=== PATIENT | female | born 1995 | race African-American/Black ===

== ENCOUNTER 2016-12-14 23:48 | Emergency (ER) | payer SELFPAY ==
[~2016-12-14] VITALS: Ht 165.1 cm; Wt 84.4 kg
[2016-12-15] MEDS ORDERED: LIDO:MAALOX:DONNATAL 1:1:1 15 ML SINGLE DOSE SWSW ONE (01:00)
--- NOTE | 2016-12-15 01:33 | PHYS DOC ---
Past Medical History Past Medical History: Other Additional Past Medical Histor: lupus and sickle cell Past Surgical History: Other Additional Past Surgical Histo: breasts reduction Alcohol Use: None Drug Use: None Adult General Chief Complaint Chief Complaint: CHEST PAIN HPI HPI This is a 21-year-old female who states she's had mild epigastric and substernal chest pain that does radiate somewhat into her back that she states occurred around 4 PM. She states she has mild shortness of breath area. She does state she has had some nausea and vomiting as well. She does state she has history of Lupus and sickle trait. She is in no acute distress and rates her pain a 10 out of 10. Review of Systems Review of Systems Constitutional: Denies fever or chills [] Eyes: Denies change in visual acuity, redness, or eye pain [] HENT: Denies nasal congestion or sore throat [] Respiratory: Denies cough or shortness of breath [] Cardiovascular: No additional information not addressed in HPI [] GI: Denies abdominal pain, nausea, vomiting, bloody stools or diarrhea [] : Denies dysuria or hematuria [] Musculoskeletal: Denies back pain or joint pain [] Integument: Denies rash or skin lesions [] Neurologic: Denies headache, focal weakness or sensory changes [] Endocrine: Denies polyuria or polydipsia [] Current Medications Current Medications Current Medications Medications (Trade) Dose Ordered Sig/Franny Start Time Stop Time Status Last Admin Dose Admin Fentanyl Citrate (Fentanyl 2ml Vial) 50 mcg 1X ONCE 12/15/16 02:00 12/15/16 02:01 DC 12/15/16 01:57 50 MCG Multi-Ingredient Mouthwash/Gargle (Gi Cocktail Single Dose) 15 ml 1X ONCE 12/15/16 01:00 12/15/16 01:01 DC 12/15/16 00:50 15 ML Pantoprazole Sodium (Protonix Vial) 40 mg 1X ONCE 12/15/16 02:00 12/15/16 02:01 DC 12/15/16 01:57 40 MG Allergies Allergies Allergies Coded Allergies Type Severity Reaction Last Updated Verified oxycodone Adverse Reaction Intermediate VOMITING 11/08/14 No Physical Exam Physical Exam Constitutional: Well developed, well nourished, no acute distress, non-toxic appearance. [] HENT: Normocephalic, atraumatic, bilateral external ears normal, oropharynx moist, no oral exudates, nose normal. [] Eyes: PERRLA, EOMI, conjunctiva normal, no discharge. [] Neck: Normal range of motion, no tenderness, supple, no stridor. [] Cardiovascular:Heart rate regular rhythm, no murmur [] Lungs & Thorax: Bilateral breath sounds clear to auscultation [] Abdomen: Bowel sounds normal, soft, no tenderness, no masses, no pulsatile masses. [] Skin: Warm, dry, no erythema, no rash. [] Back: No tenderness, no CVA tenderness. [] Extremities: No tenderness, no cyanosis, no clubbing, ROM intact, no edema. [] Neurologic: Alert and oriented X 3, normal motor function, normal sensory function, no focal deficits noted. [] Psychologic: Affect normal, judgement normal, mood normal. [] Current Patient Data Vital Signs Vital Signs Date Time Temp Pulse Resp B/P Pulse Ox O2 Delivery O2 Flow Rate FiO2 12/15/16 01:57 16 Room Air 12/15/16 01:18 54 131/84 99 12/15/16 00:02 97.3 97.3 Lab Values Laboratory Tests Test 12/15/16 00:04 12/15/16 00:26 White Blood Count 10.7x10^3/uL (4.0-11.0) Red Blood Count 4.52x10^6/uL (3.50-5.40) Hemoglobin 10.8g/dL (12.0-15.5) L Hematocrit 34.4% (36.0-47.0) L Mean Corpuscular Volume 76fL (79-100) L Mean Corpuscular Hemoglobin 24pg (25-35) L Mean Corpuscular Hemoglobin Concent 31g/dL (31-37) Red Cell Distribution Width 19.1% (11.5-14.5) H Platelet Count 377x10^3/uL (140-400) Neutrophils (%) (Auto) 65% (31-73) Lymphocytes (%) (Auto) 27% (24-48) Monocytes (%) (Auto) 5% (0-9) Eosinophils (%) (Auto) 2% (0-3) Basophils (%) (Auto) 1% (0-3) Neutrophils # (Auto) 6.9x10^3uL (1.8-7.7) Lymphocytes # (Auto) 2.9x10^3/uL (1.0-4.8) Monocytes # (Auto) 0.6x10^3/uL (0.0-1.1) Eosinophils # (Auto) 0.3x10^3/uL (0.0-0.7) Basophils # (Auto) 0.1x10^3/uL (0.0-0.2) D-Dimer (Mili) < 0.27ug/mlFEU (0.00-0.50) Sodium Level 140mmol/L (136-145) Potassium Level 3.8mmol/L (3.5-5.1) Chloride Level 104mmol/L (98-107) Carbon Dioxide Level 23mmol/L (21-32) Anion Gap 13 (6-14) Blood Urea Nitrogen 6mg/dL (7-20) L Creatinine 0.8mg/dL (0.6-1.0) Estimated GFR (Cockcroft-Gault) 107.6 BUN/Creatinine Ratio 8 (6-20) Glucose Level 97mg/dL (70-99) Calcium Level 9.6mg/dL (8.5-10.1) Total Bilirubin 0.4mg/dL (0.2-1.0) Aspartate Amino Transferase (AST) 15U/L (15-37) Alanine Aminotransferase (ALT) 32U/L (14-59) Alkaline Phosphatase 93U/L (46-116) Troponin I Quantitative < 0.017ng/mL (0.000-0.055) Total Protein 7.5g/dL (6.4-8.2) Albumin 3.8g/dL (3.4-5.0) Albumin/Globulin Ratio 1.0 (1.0-1.7) Lipase 146U/L (73-393) POC Urine HCG, Qualitative Hcg negative (Negative) Laboratory Tests 12/15/16 00:04 Laboratory Tests 12/15/16 00:04 EKG EKG EKG as interpreted by me shows a sinus rhythm with rate of 74 bpm. There are some T-wave inversion noted to lead 3 and aVF but no other obvious abnormalities are seen. Radiology/Procedures Radiology/Procedures One view of the chest does not reveal any acute cardiopulmonary abnormality CT of her abdomen/pelvis without contrast demonstrated the following: Limited images of lung bases are clear. Heart size within normal limits. No pleural or pericardial effusion. Solid abdominal viscera not well evaluated in the absence of contrast material. No apparent attenuation abnormality of the liver or spleen. Pancreas and adrenal glands are unremarkable. There are some layering calcific densities at the gallbladder fundus. Kidneys are symmetric in size and attenuation. No calcific stone or hydronephrosis. Under opacified GI tract normal in caliber and contour. No focal bowel wall thickening. No inflammatory stranding in the mesentery. The appendix is normal in caliber. No ascites or lymphadenopathy. Images of pelvis show nondistended urinary bladder. Uterus and adnexa are unremarkable. No free pelvic fluid or pelvic lymphadenopathy. Bone window show no acute findings. Course & Med Decision Making Course & Med Decision Making Pertinent Labs and Imaging studies reviewed. (See chart for details) This 21-year-old female is having some chest discomfort was given a GI cocktail with minimal to no relief. Her EKG and chest x-ray at this time do not reveal any acute abnormality. D-dimer is negative. I will continue to work her up for any heart related issue. On my reassessment, the patient appears still very uncomfortable despite protonix dose. She localizes her pain to the left upper quadrant and radiating into her back. I will add additional laboratory workup including a CBC, CMP, and lipase and add a CT of her abdomen and pelvis with specific concern to rule out any acute cause of her symptoms such as gastric perforation. CT of her abdomen and pelvis demonstrated no acute findings but did demonstrate cholelithiasis which could be the source of her pain. I'll be discharging her with a course of nausea and pain control with strict instruction to follow closely with her primary care doctor for her abdominal pain and gallstones. The rest of her laboratory work up is negative. Dragon Disclaimer Dragon Disclaimer This electronic medical record was generated, in whole or in part, using a voice recognition dictation system. Departure Departure Impression: Primary Impression: Epigastric abdominal pain Additional Impression: Cholelithiasis Disposition: 01 HOME, SELF-CARE Admitting Physician: Other Condition: STABLE Referrals: DANIELE HONG MD (PCP) SRIKANTH ADDISON MD Patient Instructions: Chest Wall Pain, [id number], Cholelithiasis, Easy-to- Read Additional Instructions: Please take your medication as prescribed and follow up closely with your primary doctor in the next 1-2 days. Return to the ER if you develop any worsening of your pain despite taking your medications. Scripts Ondansetron Hcl (Zofran)4 Mg Tablet4 Mg PO BID PRN NAUSEA/VOMITING #10 TAB Prov:SRIKANTH JESSICA DO 12/15/16 Hydrocodone/Apap 5-325 ([place] 5-325 Tablet)1 Each Tablet1 Tab PO PRN Q6HRS PRN PAIN #10 TAB Prov:SRIKANTH JESSICA DO 12/15/16 Famotidine (Pepcid)20 Mg [id number] Mg PO HS #10 TAB Prov:SRIKANTH JESSICA DO 12/15/16 Problem Qualifiers SRIKANTH JESSICA DO Dec 15, 2016 01:32
[2016-12-15] MEDS ORDERED: FAMO-63 PO (01:44)
[2016-12-15] MEDS ORDERED: PANTOPRAZOLE IV PUSH 40 MG VIAL. IVP ONE (02:00)
[2016-12-15] MEDS ORDERED: FENTANYL PF 100 MCG/2 ML VIAL. IV ONE (02:00)
[2016-12-15 02:02] LABS: BASO # 0.1 x10^3/uL (0.0-0.2); BASO % 1 % (0-3); EOS % 2 % (0-3); HEMATOCRIT 34.4 % (36.0-47.0); HEMOGLOBIN 10.8 g/dL (12.0-15.5); LYMPH # 2.9 x10^3/uL (1.0-4.8); LYMPH % 27 % (24-48); MEAN CORPUSCULAR HEMOGLOBIN 24 pg (25-35); MEAN CORPUSCULAR HGB CONC 31 g/dL (31-37); MEAN CORPUSCULAR VOLUME 76 fL (79-100); MONO % 5 % (0-9); NEUT % 65 % (31-73); PLATELET COUNT 377 x10^3/uL (140-400); RED BLOOD COUNT 4.52 x10^6/uL (3.50-5.40); RED CELL DISTRIBUTION WIDTH 19.1 % (11.5-14.5); WHITE BLOOD COUNT 10.7 x10^3/uL (4.0-11.0)
[2016-12-15 02:14] LABS: CALCIUM 9.6 mg/dL (8.5-10.1); CREATININE 0.8 mg/dL (0.6-1.0); GFR 107.6; POTASSIUM 3.8 mmol/L (3.5-5.1)
[2016-12-15 02:19] LABS: ALBUMIN 3.8 g/dL (3.4-5.0); TOTAL BILIRUBIN 0.4 mg/dL (0.2-1.0); TOTAL PROTEIN 7.5 g/dL (6.4-8.2)
[2016-12-15 02:36] VITALS: BP 97/61
--- NOTE | 2016-12-15 02:50 | RAD ---
PROCEDURE CT abdomen and pelvis without contrast dated 12/15/2016. HISTORY Abdominal pain. Rule out perforation. TECHNIQUE Contiguous axial imaging of the abdomen and pelvis performed without the administration of IV or oral contrast.Exposure: One or more of the following individualized dose reduction techniques were utilized for this exam: 1. Automated exposure control. 2. Adjustment of the mA and/or kV according to patient size. 3. Use of iterative reconstruction technique. COMPARISON 11/08/2014. FINDINGS Limited images of lung bases are clear. Heart size within normal limits. No pleural or pericardial effusion. Solid abdominal viscera not well evaluated in the absence of contrast material. No apparent attenuation abnormality of the liver or spleen. Pancreas and adrenal glands are unremarkable. There are some layering calcific densities at the gallbladder fundus. Kidneys are symmetric in size and attenuation. No calcific stone or hydronephrosis. Under opacified GI tract normal in caliber and contour. No focal bowel wall thickening. No inflammatory stranding in the mesentery. The appendix is normal in caliber. No ascites or lymphadenopathy. Images of pelvis show nondistended urinary bladder. Uterus and adnexa are unremarkable. No free pelvic fluid or pelvic lymphadenopathy. Bone window show no acute findings. IMPRESSION - No acute abnormality of abdomen or pelvis. No evidence of bowel perforation. - Normal appendix. - Cholelithiasis. Electronically signed by: Lon Bennett (Dec 15, 2016 02:49:14)
[2016-12-15] MEDS ORDERED: ONDA4TAB7 PO (02:58)
[2016-12-15] MEDS ORDERED: HYDR-971 PO (02:58)
--- NOTE | 2016-12-15 06:52 | EKG ---
[facility] [address] [place] [address] Test Date: 2016-12-14 Test Time: 23:55:06 Pat Name: NNAMDI MERCADO Department: Room: Gender: F Regional Marketing Manager: : 1995 Requested By: SRIKANTH JESSICA Order Number: [id number] Reading MD: Measurements Intervals [place] Rate: 74 P: 0 [place]: 182 QRS: 0 QRSD: 88 T: -12 QT: 360 QTc: 404 Interpretive Statements SINUS RHYTHM LEFTWARD AXIS INCOMPLETE RIGHT BUNDLE BRANCH BLOCK T ABNORMALITY IN INFERIOR LEADS RI6.01 Unconfirmed report No previous ECG available for comparison
--- NOTE | 2016-12-15 07:28 | RAD ---
EXAM: Chest one view. HISTORY: Chest pain. COMPARISON: 09/28/2010. FINDINGS: A frontal view of the chest is obtained. There are no confluent infiltrates. There is no pneumothorax or pleural effusion. The heart is not enlarged. IMPRESSION: 1. No confluent infiltrates.
== END 2016-12-15 03:03 | disposition home or self-care (01) ==
LOC: ER 23:48
DX: K80.20 Calculus of gallbladder without cholecystitis without obstruction (principal); Z88.5 Allergy status to narcotic agent
CPT/HCPCS: 36415; 71010; 74176; 80053; 81025; 83690; 84484; 85027; 85379; 93005; 96374; 96375; 99285; C9113; J3010; 99284-25

== ENCOUNTER 2016-12-20 23:42 | Emergency (ER) | payer OTHER ==
[~2016-12-20] VITALS: Ht 165.1 cm; Wt 90.7 kg
[~2016-12-20 23:42] MED LIST: FAMO-63 PO; HYDR-971 PO; ONDA4TAB7 PO
[2016-12-21] MEDS ORDERED: IV NORMAL SALINE 1000ML BAG 1,000 ML IV SCH (00:19)
[2016-12-21] MEDS ORDERED: FAMOTIDINE 20 MG/2 ML VIAL IVP ONE (00:30)
[2016-12-21] MEDS ORDERED: ONDANSETRON PF 4 MG/2 ML VIAL. IV ONE (00:30)
[2016-12-21 00:37] LABS: BASO # 0.1 x10^3/uL (0.0-0.2); BASO % 1 % (0-3); EOS % 1 % (0-3); HEMATOCRIT 34.5 % (36.0-47.0); LYMPH # 3.9 x10^3/uL (1.0-4.8); LYMPH % 33 % (24-48); MEAN CORPUSCULAR HEMOGLOBIN 24 pg (25-35); MEAN CORPUSCULAR HGB CONC 32 g/dL (31-37); MEAN CORPUSCULAR VOLUME 76 fL (79-100); MONO % 6 % (0-9); NEUT % 59 % (31-73); PLATELET COUNT 378 x10^3/uL (140-400); RED BLOOD COUNT 4.53 x10^6/uL (3.50-5.40); RED CELL DISTRIBUTION WIDTH 19.4 % (11.5-14.5); WHITE BLOOD COUNT 11.8 x10^3/uL (4.0-11.0)
[2016-12-21 00:51] LABS: BACTERIA,URINE MANY /HPF (0-FEW); BILIRUBIN,URINE NEGATIVE (NEG); GLUCOSE,URINE NEGATIVE (NEG); NITRITE,URINE NEGATIVE (NEG); PH,URINE 5.5; PROTEIN,URINE NEGATIVE (NEG-TRACE); RBC,URINE 0 /HPF (0-2); SQUAMOUS EPITHELIAL CELL,UR MANY /LPF; UROBILINOGEN,URINE 0.2 mg/dL (0.2 mg/dL)
[2016-12-21 00:53] LABS: CALCIUM 9.4 mg/dL (8.5-10.1); CREATININE 0.8 mg/dL (0.6-1.0); GFR 107.6; POTASSIUM 3.8 mmol/L (3.5-5.1)
[2016-12-21 00:56] LABS: ALBUMIN 3.8 g/dL (3.4-5.0); TOTAL BILIRUBIN 0.4 mg/dL (0.2-1.0); TOTAL PROTEIN 7.5 g/dL (6.4-8.2)
--- NOTE | 2016-12-21 01:12 | RAD ---
Ultrasound abdomen limited Indication: Right upper quadrant pain. The liver is unremarkable. No focal liver mass is detected. The gallbladder is mildly distended. There are small stones identified in the fundus. No gallbladder wall thickening or pericholecystic fluid is detected. No biliary ductal dilatation is seen. The pancreas was poorly visualized. The right kidney is unremarkable. IVC is unremarkable. There is no ascites. Impression: 1. Cholelithiasis without evidence of acute cholecystitis. Electronically signed by: Adolfo Cortez MD (Dec 21, 2016 01:11:14)
--- NOTE | 2016-12-21 02:05 | PHYS DOC ---
Past Medical History Past Medical History: Gallstones, Other Additional Past Medical Histor: lupus and sickle cell Past Surgical History: Other Additional Past Surgical Histo: breasts reduction Alcohol Use: Occasionally Drug Use: None Adult General Chief Complaint Chief Complaint: ABDOMINAL PAIN HPI HPI Patient is a 21 year old female who presents with abdominal pain and nausea/ vomiting. Patient was seen this past week in the emergency department and was diagnosed with cholelithiasis. She was given prescriptions for medications to control pain and nausea, however she has not been able to fill the prescriptions due to insufficient funds. She does have appointment to follow-up with the surgeon on 12/23. She presents tonight with worsening right upper quadrant pain and nausea/vomiting for the past couple hours. No clear inciting or aggravating factors. She has tried some Tylenol at home with insufficient relief. Review of Systems Review of Systems Constitutional: Denies fever or chills Eyes: Denies change in visual acuity or eye pain HENT: Denies nasal congestion or sore throat Respiratory: Denies cough or shortness of breath Cardiovascular: Denies chest pain GI: RUQ abdominal pain, nausea, vomiting. Denies bloody stools or diarrhea : Denies dysuria or hematuria Musculoskeletal: Denies back pain or joint pain Integument: Denies rash or skin lesions Neurologic: Denies headache, focal weakness or sensory changes Current Medications Current Medications Current Medications Medications (Trade) Dose Ordered Sig/Franny Start Time Stop Time Status Last Admin Dose Admin Acetaminophen/ Hydrocodone Bitart (Lortab 5/325) 1 tab 1X ONCE 12/21/16 02:15 12/21/16 02:16 DC 12/21/16 02:17 1 TAB Famotidine (Pepcid) 20 mg 1X ONCE 12/21/16 00:30 12/21/16 00:42 DC 12/21/16 00:40 20 MG Ondansetron HCl (Zofran) 4 mg 1X ONCE 12/21/16 00:30 12/21/16 00:42 DC 12/21/16 00:41 4 MG Sodium Chloride (Iv Sodium Chloride 0.9% 1000ml Bag) 1,000 ml @ 1,000 mls/hr Q1H 12/21/16 00:19 12/21/16 01:18 DC 12/21/16 00:41 1,000 MLS/HR Allergies Allergies Allergies Coded Allergies Type Severity Reaction Last Updated Verified oxycodone Adverse Reaction Intermediate VOMITING 11/08/14 No Physical Exam Physical Exam Constitutional: Well developed, well nourished, no acute distress, non-toxic appearance HENT: Normocephalic, atraumatic, bilateral external ears normal Eyes: EOMI, conjunctiva normal, no discharge Neck: Normal range of motion, no stridor Cardiovascular: Bradycardic, regular rhythm, no murmur Lungs & Thorax: Bilateral breath sounds clear to auscultation Abdomen: Bowel sounds normal, soft, non-distended, RUQ/epigastric TTP without guarding or rebound Skin: Warm, dry, no erythema, no rash Extremities: No obvious deformity, no edema Neurologic: Somnolent but arousable, oriented X 3, no gross deficits noted Current Patient Data Vital Signs Vital Signs Date Time Temp Pulse Resp B/P Pulse Ox O2 Delivery O2 Flow Rate FiO2 12/21/16 02:51 74 108/69 98 Room Air 12/21/16 02:17 16 12/20/16 23:53 97.6 97.6 Lab Values Laboratory Tests Test 12/21/16 00:04 12/21/16 00:07 Urine Collection Type Unknown Urine Color Yellow Urine Clarity Cloudy Urine pH 5.5 Urine Specific [place] 1.020 Urine Protein Negativemg/dL (NEG-TRACE) Urine Glucose (UA) Negativemg/dL (NEG) Urine Ketones (Stick) Negativemg/dL (NEG) Urine Blood Negative (NEG) Urine Nitrite Negative (NEG) Urine Bilirubin Negative (NEG) Urine Urobilinogen Dipstick 0.2mg/dL (0.2 mg/dL) Urine Leukocyte Esterase Small (NEG) Urine RBC 0/HPF (0-2) Urine WBC 5-10/HPF (0-4) Urine Squamous Epithelial Cells Many/LPF Urine Bacteria Many/HPF (0-FEW) Urine Mucus Marked/LPF Urine Opiates Screen Neg (NEG) Urine Methadone Screen Neg (NEG) Urine Barbiturates Neg (NEG) Urine Phencyclidine Screen Neg (NEG) Urine Amphetamine/Methamphetamine Neg (NEG) Urine Benzodiazepines Screen Neg (NEG) Urine Cocaine Screen Neg (NEG) Urine Cannabinoids Screen Neg (NEG) Urine Ethyl Alcohol Neg (NEG) White Blood Count 11.8x10^3/uL (4.0-11.0) H Red Blood Count 4.53x10^6/uL (3.50-5.40) Hemoglobin 11.0g/dL (12.0-15.5) L Hematocrit 34.5% (36.0-47.0) L Mean Corpuscular Volume 76fL (79-100) L Mean Corpuscular Hemoglobin 24pg (25-35) L Mean Corpuscular Hemoglobin Concent 32g/dL (31-37) Red Cell Distribution Width 19.4% (11.5-14.5) H Platelet Count 378x10^3/uL (140-400) Neutrophils (%) (Auto) 59% (31-73) Lymphocytes (%) (Auto) 33% (24-48) Monocytes (%) (Auto) 6% (0-9) Eosinophils (%) (Auto) 1% (0-3) Basophils (%) (Auto) 1% (0-3) Neutrophils # (Auto) 7.0x10^3uL (1.8-7.7) Lymphocytes # (Auto) 3.9x10^3/uL (1.0-4.8) Monocytes # (Auto) 0.7x10^3/uL (0.0-1.1) Eosinophils # (Auto) 0.1x10^3/uL (0.0-0.7) Basophils # (Auto) 0.1x10^3/uL (0.0-0.2) Sodium Level 142mmol/L (136-145) Potassium Level 3.8mmol/L (3.5-5.1) Chloride Level 105mmol/L (98-107) Carbon Dioxide Level 25mmol/L (21-32) Anion Gap 12 (6-14) Blood Urea Nitrogen 10mg/dL (7-20) Creatinine 0.8mg/dL (0.6-1.0) Estimated GFR (Cockcroft-Gault) 107.6 BUN/Creatinine Ratio 13 (6-20) Glucose Level 131mg/dL (70-99) H Calcium Level 9.4mg/dL (8.5-10.1) Total Bilirubin 0.4mg/dL (0.2-1.0) Aspartate Amino Transferase (AST) 48U/L (15-37) H Alanine Aminotransferase (ALT) 42U/L (14-59) Alkaline Phosphatase 100U/L (46-116) Total Protein 7.5g/dL (6.4-8.2) Albumin 3.8g/dL (3.4-5.0) Albumin/Globulin Ratio 1.0 (1.0-1.7) Lipase 127U/L (73-393) Ethyl Alcohol Level < 10mg/dL (0-10) Laboratory Tests 12/21/16 00:07 Laboratory Tests 12/21/16 00:07 EKG EKG [] Radiology/Procedures Radiology/Procedures RUQ US: Impression: 1. Cholelithiasis without evidence of acute cholecystitis. Course & Med Decision Making Course & Med Decision Making Pertinent Labs and Imaging studies reviewed. (See chart for details) Patient is 21-year-old female who presents with right upper quadrant pain and nausea/vomiting. Has known cholelithiasis. Will check labs, right upper quadrant ultrasound to rule out cholecystitis. IV fluids, nausea medicine ordered for relief of symptoms. Will hold on narcotic pain medication at this time due to patient's somnolence. Labs notable for mild leukocytosis. AST minimally elevated. Imaging results as above. Discussed results with patient. Patient says she is feeling better at this time. As she is more awake, I will give oral pain medication at this time for further control of pain. I discussed discharge home with patient filling her prescriptions to manage her symptoms as an outpatient with subsequent follow up with surgeon at already scheduled appointment versus admission for inpatient management of symptoms. Patient desires to go home. Will discharge with instructions for follow-up and return precautions. Dragon Disclaimer Dragon Disclaimer This electronic medical record was generated, in whole or in part, using a voice recognition dictation system. Departure Departure Impression: Primary Impression: Cholelithiasis Disposition: 01 HOME, SELF-CARE Condition: IMPROVED Referrals: DANIELE HONG MD (PCP) Patient Instructions: Cholelithiasis Additional Instructions: Thank you for allowing us to provide care today in the Emergency Department. Fill the prescriptions that you were given last time you were seen in the Emergency Department. Schedule a follow up appointment with your primary care doctor. Keep your scheduled appointment with the general surgeon. Return promptly to the Emergency Department if you develop any new or concerning symptoms, such as fever. MAKSIM ZHANG MD Dec 21, 2016 02:05
[2016-12-21] MEDS ORDERED: HYDROCODONE/APAP 5/325MG TABLET. PO ONE (02:15)
[2016-12-21 02:18] LABS: BARBITURATES NEG (NEG); BENZODIAZEPINES NEG (NEG); CANNABINOIDS NEG (NEG); COCAINE NEG (NEG); ETHANOL, URINE NEG (NEG); METHADONE NEG (NEG); OPIATES NEG (NEG); PHENCYCLIDINE NEG (NEG)
[2016-12-21 02:51] VITALS: BP 108/69
--- NOTE | 2016-12-24 16:21 | VNOTE ---
CALL BACK NOTE CALL BACK Microbiology 12/21/16 Urine Culture - Final, Complete 12/21/16 Urine Culture Result 1 (TIFFANIE) - Final, Complete 12/21/16 Antimicrobic Susceptibility - Final, Complete Urine culture was positive for greater than 100,000 Escherichia coli. Called the patient, spoke to her, she states she is at [facility] they just took her gallbladder and gallstones. She states she is admitted there. Informed her, her urine has infection and she needs to let her doctor at know. KIARA BETANCOURT APRN Dec 24, 2016 16:21
== END 2016-12-21 02:55 | disposition home or self-care (01) ==
LOC: ER 23:42
DX: K80.20 Calculus of gallbladder without cholecystitis without obstruction (principal); M32.9 Systemic lupus erythematosus, unspecified; D72.829 Elevated white blood cell count, unspecified; Z86.2 Personal history of diseases of the blood and blood-forming organs and certain disorders involving the immune mechanism
CPT/HCPCS: 36415; 76705; 80053; 81001; 81025; 83690; 85027; 87086; 96361; 96374; 99285; G0480; G0481; J2405; J7030; S0028

== ENCOUNTER 2019-09-29 10:06 | Emergency (ER) | payer SELFPAY ==
[~2019-09-29] VITALS: Ht 165.1 cm; Wt 93.0 kg
[~2019-09-29 10:06] MED LIST changes: +HYDR-3164 PO; -HYDR-971 PO
[2019-09-29 10:30] VITALS: BP 111/75
[2019-09-29 11:32] LABS: BILIRUBIN,URINE NEGATIVE (NEG); CLARITY,URINE CLEAR; COLOR,URINE YELLOW; NITRITE,URINE POSITIVE (NEG); PROTEIN,URINE NEGATIVE (NEG-TRACE)
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
[2019-09-29] MEDS ORDERED: IBUPROFEN 400 MG TABLET. PO ONE (11:45)
[2019-09-29 11:54] LABS: SQUAMOUS EPITHELIAL CELL,UR FEW /LPF
[2019-09-29 11:55] LABS: BACTERIA,URINE MANY /HPF (0-FEW)
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
[2019-09-29] MEDS ORDERED: IBUP-1007 PO (12:36)
[2019-09-29] MEDS ORDERED: CEPH-264 PO (12:37)
== END 2019-09-29 12:54 | disposition home or self-care (01) ==
LOC: ER 10:06
DX: R07.81 Pleurodynia (principal); N39.0 Urinary tract infection, site not specified; Z98.890 Other specified postprocedural states; Z87.442 Personal history of urinary calculi; Z79.899 Other long term (current) drug therapy; Y04.2XXA Assault by strike against or bumped into by another person, initial encounter; Y93.89 Activity, other specified; Y92.89 Other specified places as the place of occurrence of the external cause; Y99.8 Other external cause status
CPT/HCPCS: 71101; 81001; 81025; 87086; 87186; 99285

== ENCOUNTER 2021-07-09 20:54 | Emergency (ER) | payer SELFPAY ==
[~2021-07-09] VITALS: Ht 165.1 cm; Wt 106.7 kg
[~2021-07-09 20:54] MED LIST changes: +CEPH-264 PO; +IBUP-1007 PO
[2021-07-09] MEDS ORDERED: IOHEXOL 300 MG/ML 100ML VIAL. IV ONE (21:30)
[2021-07-09] MEDS ORDERED: CONTRAST GIVEN. MC PRN (21:45)
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
[2021-07-09 22:49] VITALS: BP 125/74
== END 2021-07-09 22:58 | disposition home or self-care (01) ==
LOC: ER 20:54
DX: S00.01XA Abrasion of scalp, initial encounter (principal); S70.312A Abrasion, left thigh, initial encounter; M54.6 Pain in thoracic spine; M54.5 Low back pain; Z88.5 Allergy status to narcotic agent; F17.200 Nicotine dependence, unspecified, uncomplicated; W13.0XXA Fall from, out of or through balcony, initial encounter; Y93.89 Activity, other specified; Y92.89 Other specified places as the place of occurrence of the external cause; Y99.8 Other external cause status
CPT/HCPCS: 70450; 71260; 72125; 74177; 99285; Q9967

== ENCOUNTER 2021-09-02 17:06 | Emergency (ER) | payer SELFPAY ==
[~2021-09-02] VITALS: Ht 165.1 cm; Wt 100.0 kg
[2021-09-02] MEDS ORDERED: IV NORMAL SALINE 1000ML BAG 1,000 ML IV SCH (18:00)
--- NOTE | 2021-09-02 18:04 | PHYS DOC ---
Past Medical History Past Medical History: Gallstones, Other Additional Past Medical Histor: lupus and sickle cell Past Surgical History: Cholecystectomy, Other Additional Past Surgical Histo: breasts reduction, PARTIAL HYSTERECTOMY, ECTOPIC Smoking Status: Former Smoker Alcohol Use: Occasionally Drug Use: None General Adult EDM: Chief Complaint: FLANK PAIN HPI: HPI: Patient is a 26 year old [f__sex] who presents with [] Review of Systems: Review of Systems: Constitutional: +fever or +chills. [] Eyes: Denies change in visual acuity. [] HENT: Denies nasal congestion or sore throat. [] Respiratory: Denies cough or shortness of breath. [] Cardiovascular: Denies chest pain or edema. [] GI: Denies abdominal pain, nausea, vomiting, bloody stools or diarrhea. [] : Denies dysuria. +Pressure with urination. [] Musculoskeletal: +bilateral back pain or denies joint pain. [] Integument: Denies rash. [] Neurologic: Denies headache, focal weakness or sensory changes. [] Endocrine: Denies polyuria or polydipsia. [] Lymphatic: Denies swollen glands. [] Psychiatric: Denies depression or anxiety. [] Heart Score: C/O Chest Pain: No Current Medications: Current Medications Medications (Trade) Dose Ordered Sig/Franny Start Time Stop Time Status Last Admin Dose Admin Sodium Chloride 1,000 ml @ 1,000 mls/hr Q1H 09/02/21 18:00 09/02/21 18:59 Allergies: Allergies: Allergies Coded Allergies Type Severity Reaction Last Updated Verified oxycodone Adverse Reaction Intermediate VOMITING 11/08/14 No Physical Exam: PE: Constitutional: Well developed, well nourished, no acute distress, non-toxic appearance. [] HENT: Normocephalic, atraumatic, bilateral external ears normal, oropharynx moist, no oral exudates, nose normal. [] Eyes: PERRLA, EOMI, conjunctiva normal, no discharge. [] Neck: Normal range of motion, no tenderness, supple, no stridor. [] Cardiovascular:Heart rate regular rhythm, no murmur [] Lungs & Thorax: Bilateral breath sounds clear to auscultation [] Abdomen: Bowel sounds normal, soft, no tenderness, no masses, no pulsatile masses. [] Skin: Warm, dry, no erythema, no rash. [] Back: No tenderness, no CVA tenderness. [] Extremities: No tenderness, no cyanosis, no clubbing, ROM intact, no edema. [] Neurologic: Alert and oriented X 3, normal motor function, normal sensory function, no focal deficits noted. [] Psychologic: Affect normal, judgement normal, mood normal. [] Normal physical exam EKG: EKG: [] Radiology/Procedures: Radiology/Procedures: [] Impression: [facility] [address] [place] [address] IMAGING REPORT Signed PATIENT: NNAMDI MERCADO ACCOUNT: [id number] : 1995 LOCATION: ER AGE: 26 SEX: F EXAM STATUS: REG ER ORD. PHYSICIAN: WILLIAM HOFF APRN REASON: bilateral flank, chills, fever, urinary symptoms PROCEDURE: CT ABD PELV W/ IV CONTRST ONLY Exam Date: 09/02/2021 6:[address] ABDOMEN+PELVIS W Indication: Reason: bilateral flank, chills, fever, urinary symptoms / Spl. Instructions: [id number] [phone] / History: . TECHNIQUE: CT examination of the abdomen and pelvis was performed following the administration of nonionic intravenous contrast. One or more of the following dose reduction techniques were utilized: *Automated exposure control (AEC) *Adjustment of mA and/or kV according to patient size *Use of iterative reconstruction technique *CT scan done according to ALARA, or ALARA/IMAGE GENTLY COMPARISON: July 09, 2021 FINDINGS: The visualized lung bases are clear. Status post cholecystectomy. There are a few too small to characterize hypodensities in the liver. The liver, spleen, pancreas, adrenal glands and kidneys are otherwise normal. Urinary bladder is normal in appearance. Diverticulosis coli is seen without bowel obstruction or inflammation. The appendix is normal. No significant atherosclerotic calcifications are seen. No lymphadenopathy or ascites is seen. Osseous structures are intact. IMPRESSION: No evidence of acute intra-abdominal pathology. Electronically signed by: Christina Andrews MD (09/02/2021 8:06 PM) [facility] DICTATED and SIGNED BY: CHRISTINA ANDREWS MD DATE: 09/02/21 [id number] 0 Course & Med Decision Making: Course & Med Decision Making Pertinent Labs and Imaging studies reviewed. (See chart for details) See HPI. Alert and oriented x4. Ambulatory with steady gait. Speaks in full clear sentences. Abdomen is soft and nontender. No CVA tenderness. Temperature is 99.6 in the ED. [] Dragon Disclaimer: Dragon Disclaimer: This electronic medical record was generated, in whole or in part, using a voice recognition dictation system. Departure Departure Impression: Primary Impression: UTI (lower urinary tract infection) Disposition: HOME / SELF CARE / HOMELESS Condition: STABLE Referrals: JONATAN SALAZAR MD (PCP) Patient Instructions: Urinary Tract Infection Additional Instructions: Follow-up with primary care provider in a week. Take medication as prescribed and with food. If at any point you begin vomiting and cannot keep down any fluid or pain becomes more severe return to the emergency room. Drink plenty of fluids to flush your kidneys. Scripts Cephalexin (KEFLEX) 500 Mg Capsule 1 CAP PO TID, #30 CAP Prov: WILLIAM HOFF [employer] 09/02/21 WILLIAM HOFF [employer]CH[employer]IC Sep 02, 2021 18:04
[2021-09-02] MEDS ORDERED: KETOROLAC 15 MG/ML VIAL. IVP ONE (18:15)
[2021-09-02 18:33] LABS: BASO % 0 % (0-3); EOS # 0.1 x10^3/uL (0.0-0.7); EOS % 1 % (0-3); HEMATOCRIT 37.5 % (36.0-47.0); HEMOGLOBIN 12.8 g/dL (12.0-15.5); LYMPH # 1.8 x10^3/uL (1.0-4.8); LYMPH % 17 % (24-48); MEAN CORPUSCULAR HEMOGLOBIN 29 pg (25-35); MEAN CORPUSCULAR HGB CONC 34 g/dL (31-37); MEAN CORPUSCULAR VOLUME 85 fL (79-100); MONO # 0.8 x10^3/uL (0.0-1.1); MONO % 8 % (0-9); NEUT % 74 % (31-73); PLATELET COUNT 243 x10^3/uL (140-400); RED BLOOD COUNT 4.43 x10^6/uL (3.50-5.40); RED CELL DISTRIBUTION WIDTH 15.3 % (11.5-14.5); WHITE BLOOD COUNT 10.8 x10^3/uL (4.0-11.0)
[2021-09-02 18:33] LABS: BILIRUBIN,URINE NEGATIVE (NEG); CLARITY,URINE CLEAR; COLOR,URINE YELLOW; NITRITE,URINE NEGATIVE (NEG); PROTEIN,URINE NEGATIVE (NEG-TRACE); UROBILINOGEN,URINE 0.2 mg/dL (0.2 mg/dL)
[2021-09-02 18:50] LABS: BACTERIA,URINE MODERATE /HPF (0-FEW); RBC,URINE OCC /HPF (0-2); WBC,URINE >40 /HPF (0-4)
[2021-09-02 18:56] LABS: CALCIUM 9.2 mg/dL (8.5-10.1); CREATININE 0.8 mg/dL (0.6-1.0); GFR 103.3; POTASSIUM 3.9 mmol/L (3.5-5.1)
[2021-09-02] MEDS ORDERED: IOHEXOL 300 MG/ML 100ML VIAL. IV ONE (19:00)
[2021-09-02] MEDS ORDERED: cefTRIAXone IV Push 1 GM VIAL. IVP ONE (19:00)
[2021-09-02 19:01] LABS: ALBUMIN 3.8 g/dL (3.4-5.0); TOTAL BILIRUBIN 0.7 mg/dL (0.2-1.0); TOTAL PROTEIN 7.8 g/dL (6.4-8.2)
[2021-09-02] MEDS ORDERED: ONDANSETRON PF 4 MG/2 ML VIAL. ONE (19:09)
[2021-09-02] MEDS ORDERED: ONDANSETRON PF 4 MG/2 ML VIAL. IVP ONE (19:15)
[2021-09-02] MEDS ORDERED: CONTRAST GIVEN. MC PRN (19:15)
[2021-09-02 20:05] VITALS: BP 108/58
--- NOTE | 2021-09-02 20:08 | RAD ---
Exam Date: 09/02/2021 6:[address] ABDOMEN+PELVIS W Indication: Reason: bilateral flank, chills, fever, urinary symptoms / Spl. Instructions: [id number] L [phone] / History: . TECHNIQUE: CT examination of the abdomen and pelvis was performed following the administration of no nionic intravenous contrast. One or more of the following dose reduction techniques were utilized: *Automated exposure control (AEC) *Adjustment of mA and/or kV according to patient size *Use of iterative reconstruction technique *CT scan done according to ALARA, or ALARA/IMAGE GENTLY COMPARISON: July 09, 2021 FINDINGS: The visualized lung bases are clear. Status post cholecystectomy. There are a few too small to characterize hypodensities in the liver. The liver, spleen, pancreas, adrenal glands and kidneys are otherwise normal. Urinary bladder is normal in appearance. Diverticulosis coli is seen without bowel obstruction or inflammation. The appendix is normal. No significant atherosclerotic calcifications are seen. No lymphadenopathy or ascites is seen. Osseous structures are intact. IMPRESSION: No evidence of acute intra-abdominal pathology. Electronically signed by: Armand Andrews MD (09/02/2021 8:06 PM) [facility]
[2021-09-02] MEDS ORDERED: CEPH500C PO (20:17)
== END 2021-09-02 20:41 | disposition home or self-care (01) ==
LOC: ER 17:06
DX: N39.0 Urinary tract infection, site not specified (principal); Z90.49 Acquired absence of other specified parts of digestive tract; Z90.710 Acquired absence of both cervix and uterus; Z87.891 Personal history of nicotine dependence; Z88.5 Allergy status to narcotic agent
CPT/HCPCS: 36415; 74177; 80053; 81001; 81025; 85025; 87086; 87491; 87591; 96361; 96374; 96375; 99285; J0696; J1885; J2405; J7030; Q9967